=== PATIENT | male | born 1950 | race Caucasian/White ===

== ENCOUNTER 2022-03-16 09:04 | Emergency (ER) | payer SELFPAY ==
[2022-03-16 09:09] VITALS: BP 155/78; PULSE 90; RESP 16; TEMP 36.9; O2SAT 97; BMI 25.7
[2022-03-16] MEDS: Doxycycline Monohydrate 100 MG CAPSULE PO (09:39)
[2022-03-16] MEDS: Lidocaine HCl 1 % MPF 2 ML VIAL INFILTRATI ×4 (09:40→09:42)
--- NOTE | 2022-03-16 10:14 | ED.SKABFB ---
HPI - Skin/Abscess/Foreign Bdy General Chief complaint: Skin/Abscess/Foreign Body Stated complaint: pimple or cyst on face Time Seen by Provider: 03/16/22 09:22 History of Present Illness HPI narrative: Patient complains of lump on the right side of his face that has become painful and red over the last 2 or 3 days but the small painless lump has been there for years No fever Related Data Previous Rx's Medication Instructions Recorded doxycycline hyclate 100 mg capsule 100 mg PO BID 7 days #14 caps 03/16/22 Allergies Allergy/AdvReac Type Severity Reaction Status Date / Time No Known Allergies Allergy Verified 03/16/22 09:12 [No Known Allergies*] Review of Systems Review of Systems: Positive for painful red lump on the right side of the face Negative no fever no chills no dizziness no weakness no headache no neck pain no nausea or vomiting no other skin rash no tooth pain no difficulty breathing or swallowing Yes all other systems are reviewed and are negative PMFSH Past Medical History Source: nursing notes reviewed Social History Social History Advance Directives: No Advance Directives Information Provided: No Physical Exam Vital Signs: Vital Signs: Last Vital Signs Temp 98.4 F 03/16/22 09:09 Pulse 90 03/16/22 09:09 Resp 16 03/16/22 09:09 BP 155/78 H 03/16/22 09:09 Pulse Ox 97 03/16/22 09:09 O2 Del Method 03/16/22 09:09 BMI result Body Mass Index 25.7 General appearance comfortable no distress The facial exam on the right cheek there is a red tender swollen 1 and half by 2 cm area that is fluctuant but not having any drainage, there is no dental tenderness there is no swelling inside the mouth the mandible has full range of motion The pharynx is clear Neck is supple Respiratory no distress Extremities range of motion x4 Skin no rash Course Course Course Narrative: Procedure note for facial abscess the area is cleansed with Betadine Anesthesia 6 cc of 1% lidocaine Small incision is made with discharge of pus and thick cheesy material consistent with an infected sebaceous cyst Packing was placed after expressing all the material Dressing applied Medications Administered Discontinued Medications Generic Name Dose Route Start Last Admin Trade Name Freq PRN Reason Stop Dose Admin Doxycycline Monohydrate 100 mg 03/16/22 09:25 03/16/22 09:39 Doxycycline Monohydrate 100 Mg Capsule PO 03/16/22 09:26 100 mg ONCE ONE Administration Lidocaine HCl 2 ml 03/16/22 09:24 03/16/22 09:42 Lidocaine Hcl 1 % Mpf 2 Ml Vial INFILTRATI 03/16/22 09:25 2 ml ONCE ONE Administration Lidocaine HCl 2 ml 03/16/22 09:24 03/16/22 09:40 Lidocaine Hcl 1 % Mpf 2 Ml Vial INFILTRATI 03/16/22 09:25 2 ml ONCE ONE Administration Lidocaine HCl 2 ml 03/16/22 09:24 03/16/22 09:41 Lidocaine Hcl 1 % Mpf 2 Ml Vial INFILTRATI 03/16/22 09:25 2 ml ONCE ONE Administration Lidocaine HCl 2 ml 03/16/22 09:24 03/16/22 09:42 Lidocaine Hcl 1 % Mpf 2 Ml Vial INFILTRATI 03/16/22 09:25 2 ml ONCE ONE Administration Discharge Plan Discharge Clinical Impression: Abscess of skin or subcutaneous tissue Patient Disposition: Home, Self-Care Additional Instructions: The painful lump was drained and was a mix of pus and thick material which is likely a sebaceous cyst which is been with you for many years and recently got infected Return in 2 days for packing removal wound check If it is going well and improved you can pull out the packing in 2 days if it has not fallen out by itself and you did not need to return for recheck if all is well If you are not sure or if it is not improved come back in 2 days Return any time for is increased pain and swelling, spreading redness fever any worse condition or any concerns Prescriptions: New doxycycline hyclate 100 mg capsule 100 mg PO BID 7 Days Qty: 14 0RF
== END 2022-03-16 10:48 | disposition home or self-care (01) ==
PROVIDERS: Emergency Provider Student in an Organized Health Care Education/Training Program
DX: L02.01 Cutaneous abscess of face (principal); Z79.899 Other long term (current) drug therapy
CPT/HCPCS: 10060; 87070; 87205; 99283; 99284